=== PATIENT | male | born 1990 | race Two or more races ===

== ENCOUNTER 2020-08-09 22:19 | Emergency (ER) | payer OTHER ==
[~2020-08-09] VITALS: Ht 175.3 cm; Wt 81.6 kg
[~2020-08-09 22:19] MED LIST: ALBUTEROL2.5 MG/3 M HHN; ALLEGRA-D 12 H1 EACH PO; BACTRIM DS TAB1 EAC1 ORAL; BIAXIN500 MG ORAL; KEFLEX500 MG ORAL; NORCO 5-325 TA1 EACH ORAL
--- NOTE | 2020-08-09 22:50 | NUR ---
ED Nurse Note: pt walked into ED c/o 5/10 pain on lower right leg after sofa fell on leg at work. Pt limping when walks.
--- NOTE | 2020-08-09 22:57 | Emergency Room Report ---
History of Present Illness General Chief Complaint: Lower Extremity Injury Source: Patient Present Illness HPI Disclaimer: Please note that this report is being documented using DRAGON technology. This can lead to erroneous entry secondary to incorrect interpretation by the dictating instrument. HPI: 30-year-old male presents for evaluation of injury to the right leg. 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 He noted pain and swelling and bruising. Still did not bear weight. Denies injury or pain in the knee, ankle or foot. No other injury reported. Did not take any medication prior to arrival. PMH: Denied PSH: Denied Allergies: Denied Social Hx: Denied Allergies: Coded Allergies: No Known Allergies (Unverified , 10/18/12) COVID-19 Screening Contact w/high risk pt: No Experienced COVID-19 symptoms?: No COVID-19 Testing performed DIRECTOR OF RESOURCE DEVELOPMENT: No Nursing Documentation-PMH Past Medical History: No History, Except For Hx Asthma: Yes Review of Systems All Other Systems: negative except mentioned in HPI Physical Exam Vital Signs Date Time Temp Pulse Resp B/P (MAP) Pulse Ox O2 Delivery O2 Flow Rate FiO2 08/09/20 22:46 98.6 66 18 133/73 (93) 95 Room Air General: Awake and alert, no acute distress HEENT: NC/AT. EOMI. Resp: Normal work of breathing Skin: Intact. No abrasions, laceration or rash over the exposed skin MSK: Normal tone and bulk. Moving all extremities. Swelling over the lateral aspect of the right lower leg approximately 5 cm proximal to the lateral malleolus. Tender to palpation with surrounding bruising. No skin breakdown. No tenderness in the ankle over the anterior or posterior aspect of the medial or lateral malleolus. Full range of motion on inversion, eversion, plantarflexion and dorsiflexion. No midfoot tenderness. Patella in anatomic position. Knee is stable. No pain or swelling. Neuro: Awake and alert. Mentating appropriately Medical Decision Making Diagnostic Impression: Primary Impression: Contusion of leg Qualified Codes: S80.11XA - Contusion of right lower leg, initial encounter ER Course 30-year-old male presents for evaluation of leg pain and swelling after accidentally dropping a sofa while at work. X-ray obtained does not show osse ous injury but does show soft tissue swelling. Will treat with rest, ice, compression and NSAIDs. Cleared for returning to work. Accompanying paperwork filled out. Stable for outpatient follow-up. Can return with new or worsening symptoms. Other X-Ray Diagnostic Results Other X-Ray Diagnostic Results : X-Ray ordered: Tib-fib right # of Views/Limited Vs Complete: 2 View Indication: Pain EP Interpretation: Yes Interpretation: no dislocation, no fractures, other - Soft tissue swelling consistent with contusion. No osseous injury. Impression: Other - Soft tissue swelling, no fracture Electronically Signed by: Electronically signed by Dr. Dax Mosley MD Last Vital Signs Date Time Temp Pulse Resp B/P (MAP) Pulse Ox O2 Delivery O2 Flow Rate FiO2 08/09/20 22:46 98.6 66 18 133/73 (93) 95 Room Air Disposition: HOME, SELF-CARE Condition: Stable Scripts Acetaminophen* (ACETAMINOPHEN 325MG TABLET*) 325 Mg Tablet 650 MG ORAL Q6H PRN for For Pain, #30 TAB Prov: Dax Mosley MD 08/09/20 Ibuprofen* (MOTRIN*) 600 Mg Tablet 600 MG ORAL Q6H PRN for For Pain, #30 TAB 0 Refills Prov: Dax Mosley MD 08/09/20 Dax Mosley MD Aug 09, 2020 22:57
--- NOTE | 2020-08-09 23:10 | NUR ---
ED Nurse Note: apprentice technician at bedside
[2020-08-09] MEDS ORDERED: IBUPROFEN600 M1 ORAL (23:20)
[2020-08-09] MEDS ORDERED: ACETAMINOPHEN325 M1 ORAL (23:20)
[2020-08-09 23:30] VITALS: BP 127/70
--- NOTE | 2020-08-09 23:30 | NUR ---
ER DISCHARGE NOTE: Patient is cleared to be discharged per ERMD, pt is aox4, on room air, with stable vital signs. pt was given dc, work note, xray copies and prescription instructions, pt was able to verbalize understanding, pt id band removed. pt is able to ambulate with steady gait. pt took all belongings.
--- NOTE | 2020-08-10 14:53 | Diagnostic Imaging Report ---
Indication: Right lower leg pain Technique: 2 views of the left tibia and fibula Comparison: Findings: No acute fracture. No dislocation. No radiopaque foreign body Impression: Negative
== END 2020-08-09 23:30 | disposition home or self-care (01) ==
LOC: EMR 23:13
DX: S80.11XA Contusion of right lower leg, initial encounter (principal); W22.8XXA Striking against or struck by other objects, initial encounter; Y93.89 Activity, other specified; Y92.9 Unspecified place or not applicable; J45.909 Unspecified asthma, uncomplicated
CPT/HCPCS: 99283